=== PATIENT | female | born 1945 | race Caucasian/White ===

== ENCOUNTER → 2017-01-12 | Outpatient (CLI) | payer MEDICARE ==
[2017-01-16 13:52] LABS: AMMONIUM URINE 13 mEq/day (14-62); BRUSHITE 0.51 (< 2.00); CALCIUM OXALATE 1.34 (< 2.00); CITRATE URINE 414 mg/day (> 320); COMMENTS ND (()); MAGNESIUM URINE 77 mg/day (> 60); OXALATE URINE 26 mg/day (< 45); PHOPHORUS URINE 788 mg/day (< 1100); SODIUM URATE 1.23 (< 2.00); STRUVITE 0.04 (< 75.00); SULFATE URINE 9 (< 30); SUSPECTED PROBLEM IS Uric Acid Lithiasis (()); THE PATIENT HAS: Low urine volume (()); TOTAL URINE VOLUME 1.42 L/day (> 2.00); URIC ACID URINE 398 mg/day (< 700)
== END ==
LOC: PLAB 11:18
PROVIDERS: ATTEND Urology
DX: E83.40 Disorders of magnesium metabolism, unspecified (principal)
CPT/HCPCS: 82340; 82507; 82570; 83735; 83935; 83945; 83986; 84105; 84133; 84300; 84560

== ENCOUNTER → 2017-04-11 | Outpatient (CLI) | payer MEDICARE | LOC: PLAB 07:07 | PROVIDERS: ATTEND Obstetrics & Gynecology | DX: R61 Generalized hyperhidrosis (principal) | CPT/HCPCS: 36415; 84443 ==

== ENCOUNTER → 2017-07-19 | Outpatient (CLI) | payer MEDICARE ==
[2017-07-19 16:36] LABS: FREE T4 0.85 NG/DL (0.76-1.46)
[2017-07-24 23:54] LABS: THYROGLOB ABS LESS THAN 1 IU/mL (< OR = 1)
== END ==
LOC: PLAB 11:23
PROVIDERS: ATTEND Internal Medicine Endocrinology, Diabetes & Metabolism
DX: E03.9 Hypothyroidism, unspecified (principal)
CPT/HCPCS: 36415; 84439; 84443; 86376; 86800

== ENCOUNTER → 2018-01-22 | Outpatient (CLI) | payer MEDICARE ==
[2018-01-22 18:28] LABS: FREE T4 0.91 NG/DL (0.76-1.46)
== END ==
LOC: PLAB 10:00
PROVIDERS: ATTEND Internal Medicine Endocrinology, Diabetes & Metabolism
DX: E03.9 Hypothyroidism, unspecified (principal)
CPT/HCPCS: 36415; 84439; 84443